=== PATIENT | female | born 1980 | race Caucasian/White ===

== ENCOUNTER 2018-05-01 18:48 | Emergency (ER) | payer OTHER ==
[~2018-05-01] VITALS: Ht 165.1 cm; Wt 88.7 kg
[~2018-05-01 18:48] MED LIST: ALBU8.5H5 INH; ALPR3TAB PO; ESCI5TAB7 PO; LEVO75TA PO
[2018-05-01 19:32] LABS: BASOPHILS # (AUTO) 0.01 x10^3/uL (0-0.1); BASOPHILS % (AUTO) 0 % (0-1); EOSINOPHILS # (AUTO) 0.13 x10^3/uL (0-0.4); EOSINOPHILS % (AUTO) 2 % (1-7); LYMPHOCYTES % (AUTO) 40 % (22-44); MD NO; MEAN CORPUSCULAR HGB CONC 34.6 g/dL (32.4-35.8); MEAN CORPUSCULAR VOLUME 86.7 fL (80-100); MEAN PLATELET VOLUME 8.1 fL (7.4-10.4); MONOCYTES # (AUTO) 0.35 x10^3/uL (0.2-0.8); MONOCYTES % (AUTO) 5 % (2-9); NEUTROPHILS % (AUTO) 54 % (42-75); PLATELET COUNT 266 x10^3/uL (130-400); RED BLOOD COUNT 5.29 x10^6/uL (3.82-5.3); RED CELL DISTRIBUTION WIDTH 12.6 % (9.6-15.2)
[2018-05-01 19:43] LABS: ALBUMIN 3.8 g/dL (3.4-5.0); ANION GAP 10 mmol/L (5-15); CALCIUM 9.4 mg/dL (8.5-10.1); CHLORIDE 108 mmol/L (98-107)
[2018-05-01 19:49] LABS: CREATININE 0.93 mg/dL (0.55-1.02); T4 (THYROXINE) 0.6 mcg/dL (4.8-13.9); TROPONIN I < 0.015 ng/mL (0.000-0.045)
[2018-05-01 20:10] LABS: HCG UR SG 1.016 (1.003-1.030)
[2018-05-01] MEDS ORDERED: MECLIZINE CHEWABLE 25 MG TAB ONE (21:27)
[2018-05-01] MEDS ORDERED: MECLIZINE CHEWABLE 25 MG TAB PO ONE (21:30)
[2018-05-01 22:10] LABS: MICROSCOPIC NOT IND
[2018-05-01 22:14] LABS: CULTURE INDICATED? NO
[2018-05-01 23:09] VITALS: BP 114/72
== END 2018-05-01 23:11 | disposition home or self-care (01) ==
LOC: ED 20:35
DX: H81.399 Other peripheral vertigo, unspecified ear (principal); F31.9 Bipolar disorder, unspecified; J45.909 Unspecified asthma, uncomplicated
CPT/HCPCS: 36415; 80048; 81003; 81025; 82040; 84436; 84443; 84484; 85025; 93005; 99285

== ENCOUNTER 2019-06-28 15:37 | Emergency (ER) | payer BC, OTHER ==
[~2019-06-28] VITALS: Ht 165.1 cm; Wt 92.0 kg
[2019-06-28 15:45] VITALS: BP 173/104
[2019-06-28] MEDS ORDERED: LEVO100T5 PO (15:59)
[2019-06-28] MEDS ORDERED: TOPI100T24 PO (15:59)
[2019-06-28] MEDS ORDERED: LIOT5TAB10 PO (15:59)
--- NOTE | 2019-06-28 16:02 | NUR ---
PT TO ED FOR "FLECKS" OF BRIGHT RED BLOOD IN STOOL. PT REPORTS A NEW MEDICATION IN MAY MADE HER CONSTIPATED, THEN TOOK DULCOLAX PILLS WITH RESOLUTION. PT HAS SEEN BLOOD IN STOOL SINCE THEN. PT DENIES LOOSE STOOLS OR CONSTIPATION AT THIS TIME. PT CONNECTED TO MONITORS. VSS. NO NEEDS EXPRESSED. CALL LIGHT WITHIN REACH. AWAITING EDMD ASSESSMENT.
--- NOTE | 2019-06-28 16:14 | NUR ---
RECEIVED REPORT FROM REX VALDERRAMA. ASSUMING CARE AT THIS TIME.
== END 2019-06-28 17:16 | disposition home or self-care (01) ==
LOC: ED 16:17
DX: K62.5 Hemorrhage of anus and rectum (principal); K60.0 Acute anal fissure; J45.909 Unspecified asthma, uncomplicated
CPT/HCPCS: 99282

== ENCOUNTER 2020-01-27 10:01 | Emergency (ER) | payer BC ==
[~2020-01-27] VITALS: Ht 165.1 cm; Wt 92.1 kg
[~2020-01-27 10:01] MED LIST changes: +LEVO100T5 PO; +LIOT5TAB10 PO; +TOPI100T24 PO
[2020-01-27 10:52] LABS: BASOPHILS # (AUTO) 0.02 x10^3/uL (0-0.1); BASOPHILS % (AUTO) 0 % (0-1); EOSINOPHILS # (AUTO) 0.08 x10^3/uL (0-0.4); EOSINOPHILS % (AUTO) 1 % (1-7); LYMPHOCYTES # (AUTO) 1.88 x10^3/uL (1-3.4); LYMPHOCYTES % (AUTO) 32 % (22-44); MD NO; MEAN CORPUSCULAR HEMOGLOBIN 28.7 pg (27.0-34.8); MEAN CORPUSCULAR HGB CONC 32.8 g/dL (32.4-35.8); MEAN CORPUSCULAR VOLUME 87.3 fL (80-100); MEAN PLATELET VOLUME 8.1 fL (7.4-10.4); MONOCYTES # (AUTO) 0.27 x10^3/uL (0.2-0.8); MONOCYTES % (AUTO) 5 % (2-9); NEUTROPHILS % (AUTO) 62 % (42-75); PLATELET COUNT 275 x10^3/uL (130-400); RED CELL DISTRIBUTION WIDTH 13.4 % (9.6-15.2)
--- NOTE | 2020-01-27 10:53 | NUR ---
pt walked to room from [facility]. pt presents to ED with c/o fatigue x 4 days, cough, sob w exertion and sore throat x 2 days. pt is a&ox4, resps even and unlabored, able to speak in full sentences without difficulty. pt dressed in gown, placed in droplet plus isolation precautions. mask on pt and staff. awaiting lab results and dispo at this time.
[2020-01-27 11:05] LABS: ALBUMIN 3.8 g/dL (3.4-5.0); ANION GAP 5 mmol/L (5-15); CALCIUM 8.9 mg/dL (8.5-10.1); CHLORIDE 111 mmol/L (98-107); CREATININE 1.25 mg/dL (0.55-1.02)
[2020-01-27 12:46] VITALS: BP 104/62
== END 2020-01-27 12:48 | disposition home or self-care (01) ==
LOC: ED 12:30
DX: J45.31 Mild persistent asthma with (acute) exacerbation (principal); Z20.828 Contact with and (suspected) exposure to other viral communicable diseases; J06.9 Acute upper respiratory infection, unspecified; R07.89 Other chest pain; R94.31 Abnormal electrocardiogram [ECG] [EKG]
CPT/HCPCS: 36415; 71045; 80048; 82040; 85025; 87635; 93005; 99285; J7512; 99284